=== PATIENT | male | born 2000 | race Caucasian/White ===

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

== ENCOUNTER 2022-07-27 15:43 | Emergency (ER) | payer MEDICAID | END 2022-07-27 16:47 | disposition left against medical advice (07) | LOC: ER 15:43 | DX: Z53.21 Procedure and treatment not carried out due to patient leaving prior to being seen by health care provider (principal) ==

== ENCOUNTER 2023-09-17 08:15 | Emergency (ER) | payer MEDICAID ==
[~2023-09-17] VITALS: Ht 175.3 cm; Wt 70.0 kg
[2023-09-17 08:18] VITALS: PULSE 69; RESP 16
[2023-09-17 08:19] VITALS: BP 120/73; TEMP 98.8; O2SAT 98
[2023-09-17] MEDS ORDERED: ACYC15OI7 TP (09:30)
== END 2023-09-17 09:52 | disposition home or self-care (01) ==
LOC: ER 08:15
DX: B00.1 Herpesviral vesicular dermatitis (principal); J45.909 Unspecified asthma, uncomplicated; F17.200 Nicotine dependence, unspecified, uncomplicated; F19.90 Other psychoactive substance use, unspecified, uncomplicated; Z98.890 Other specified postprocedural states
CPT/HCPCS: 99283

== ENCOUNTER 2024-08-30 13:16 | Emergency (ER) | payer MEDICAID ==
[~2024-08-30] VITALS: Ht 175.3 cm; Wt 82.0 kg
[~2024-08-30 13:16] MED LIST: ACYC15OI7 TP
[2024-08-30 13:19] VITALS: BP 143/61; PULSE 92; RESP 22; TEMP 97.7; O2SAT 100
[2024-08-30] MEDS: IPRATROPIUM/ALBUTEROL 0.5-3(2.5)MG/3ML NEB HHN STA (14:01)
[2024-08-30] MEDS: PREDNISONE 20MG TABLET PO STA (14:01)
[2024-08-30] MEDS ORDERED: P20 PO (14:05)
== END 2024-08-30 14:38 ==
LOC: ER 14:19
DX: J45.901 Unspecified asthma with (acute) exacerbation (principal); Z79.52 Long term (current) use of systemic steroids
CPT/HCPCS: 99283; J7512; Z7610